=== PATIENT | male | born 1985 | race Two or more races ===

== ENCOUNTER 2023-10-02 22:25 | Emergency (ER) | payer OTHER ==
[~2023-10-02] VITALS: Ht 170.2 cm; Wt 108.9 kg
== END 2023-10-03 | disposition left against medical advice (07) ==
LOC: ER 22:26
DX: Z53.21 Procedure and treatment not carried out due to patient leaving prior to being seen by health care provider (principal)

== ENCOUNTER 2023-10-03 16:36 | Outpatient (CLI) | payer OTHER | END 2023-10-03 16:41 | disposition home or self-care (01) | LOC: RAD 16:36 | PROVIDERS: ATTEND Internal Medicine Cardiovascular Disease | DX: I10 Essential (primary) hypertension (principal) ==